=== PATIENT | female | born 1990 | race Caucasian/White ===

== ENCOUNTER 2020-10-30 00:45 | Emergency (ER) | payer MEDICAID ==
[~2020-10-30] VITALS: Ht 165.1 cm; Wt 108.0 kg
[2020-10-30] MEDS ORDERED: ACETAMINOPHEN WITH CODEINE 300/30MG TABLET PO ONE (03:00)
[2020-10-30] MEDS ORDERED: T3 PO ×3 (03:02→03:34)
[2020-10-30 03:30] VITALS: BP 144/80
== END 2020-10-30 03:46 | disposition home or self-care (01) ==
LOC: ER 00:45
DX: R10.84 Generalized abdominal pain (principal); R03.0 Elevated blood-pressure reading, without diagnosis of hypertension; Z98.84 Bariatric surgery status
CPT/HCPCS: 99283